=== PATIENT | female | born 1985 | race Caucasian/White ===

== ENCOUNTER 2023-03-31 13:34 | Day surgery (SDC) | payer OTHER ==
[2023-03-31] MEDS ORDERED: ACETAMINOPHEN 500 MG TABLET (FP) PO ONE (14:38)
[2023-03-31] MEDS ORDERED: ACETAMINOPHEN 500 MG TABLET (FP) ONE (14:55)
[2023-03-31 15:20] LABS: HCG,QUALITATIVE URINE Negative
[2023-03-31 15:21] LABS: BASO % 0.8 % (0-2.0); EOS % 0.4 % (0-4.5); HEMATOCRIT 42.2 % (32.4-45.2); HEMOGLOBIN 14.7 GM/dL (10.7-15.3); LYMPH % 22.5 % (8-40); MCH 28.9 pg (25.7-33.7); MCHC 34.7 g/dl (32.0-36.0); MEAN CELL VOLUME 83.2 fl (80-96); MEAN PLT VOLUME 8.2 fl (7.5-11.1); MONO % 4.3 % (3.8-10.2); PLATELET COUNT 273 10^3/uL (134-434); RBC 5.07 M/mm3 (3.60-5.2); RDW 13.2 % (11.6-15.6); WHITE BLOOD COUNT 11.6 K/mm3 (4.0-10.0)
[2023-03-31] MEDS ORDERED: KETOROLAC TROMETHAMINE 30 MG/1 ML VIAL IVPUSH ONE (15:44)
[2023-03-31 15:52] LABS: URINE APPEARANCE CLEAR; URINE BILIRUBIN NEGATIVE (NEGATIVE); URINE COLOR YELLOW; URINE GLUCOSE (UA) 3+ (NEGATIVE); URINE KETONE TRACE (NEGATIVE)
[2023-03-31 15:53] LABS: EPI CELLS 10 /uL (0-25.1); HYALINE CASTS 0 /uL (0-3.1); URINE BACTERIA 682 /uL (0-1359); URINE LEUK ESTERASE NEGATIVE (NEGATIVE); URINE NITRITE NEGATIVE (NEGATIVE); URINE PROTEIN NEGATIVE (NEGATIVE); URINE RBC 1757 /uL (0-23.9); URINE UROBILINOGEN 0.2 mg/dL (0.2-1.0); URINE WBC 30 /uL (0-25.8)
[2023-03-31 15:54] LABS: BLOOD UREA NITROGEN 11.6 mg/dL (7-18); CALCIUM 8.7 mg/dL (8.5-10.1)
[2023-03-31 15:55] LABS: ALBUMIN 3.8 g/dl (3.4-5.0)
[2023-03-31 15:57] LABS: CREATININE 0.6 mg/dL (0.55-1.3)
[2023-03-31 15:59] LABS: BILIRUBIN,TOTAL 0.9 mg/dL (0.2-1)
[2023-03-31] MEDS ORDERED: KETOROLAC TROMETHAMINE 30 MG/1 ML VIAL ONE (16:49)
[2023-03-31] MEDS: SODIUM CHLORIDE 0.9% 500 ML INFUS.BAG IV SCH ×2 (20:11→20:20)
[2023-03-31] MEDS ORDERED: morphine CARPU-JECT 2 MG/1 ML DISP.SYRIN IVPUSH ONE (23:55)
[2023-04-01] MEDS ORDERED: CEFTRIAXONE 2 GM-D5W BAG 2 GM/50 ML BAG IVPB ONE (00:09)
[2023-04-01] MEDS ORDERED: CEFTRIAXONE 2 GM/100 ML BAG IVPB ONE (00:35)
[2023-04-01] MEDS ORDERED: SODIUM CHLORIDE 1,000 ML IV SCH ×2 (02:45→16:21)
[2023-04-01] MEDS ORDERED: CEFTRIAXONE 1 GM in DEXTROSE 5%-WATER - 50 ML IVPB ONE (03:00)
[2023-04-01 06:41] LABS: BASO % 0.6 % (0-2.0); EOS % 0.2 % (0-4.5); HEMATOCRIT 39.3 % (32.4-45.2); HEMOGLOBIN 13.2 GM/dL (10.7-15.3); LYMPH % 15.7 % (8-40); MCH 28.5 pg (25.7-33.7); MCHC 33.5 g/dl (32.0-36.0); MEAN PLT VOLUME 8.1 fl (7.5-11.1); MONO % 4.3 % (3.8-10.2); NEUT % 79.2 % (42.8-82.8); PLATELET COUNT 256 10^3/uL (134-434); RBC 4.62 M/mm3 (3.60-5.2); RDW 13.1 % (11.6-15.6); WHITE BLOOD COUNT 10.3 K/mm3 (4.0-10.0)
[2023-04-01 07:01] LABS: ALBUMIN 3.1 g/dl (3.4-5.0); MAGNESIUM 1.9 mg/dL (1.8-2.4)
[2023-04-01 07:03] LABS: CALCIUM 7.7 mg/dL (8.5-10.1)
[2023-04-01 07:04] LABS: CREATININE 0.5 mg/dL (0.55-1.3); PHOSPHOROUS 2.4 mg/dL (2.5-4.9)
[2023-04-01 07:05] LABS: TOT PROT 6.1 g/dl (6.4-8.2)
[2023-04-01 07:06] LABS: BILIRUBIN,TOTAL 0.4 mg/dL (0.2-1)
[2023-04-01] MEDS ORDERED: oxyCODONE HCL 5 MG TABLET PO ONE (07:30)
[2023-04-01] MEDS ORDERED: oxyCODONE HCL 5 MG TABLET ONE (08:05)
[2023-04-01] MEDS ORDERED: INSULIN (LEVEMIR) 100 UNITS/ML UNITS SQ SCH (08:15)
[2023-04-01 08:26] LABS: INR 1.17 (0.83-1.09); PROTHROMBIN TIME (PATIENT) 13.5 SEC (9.7-13.0)
[2023-04-01 08:29] LABS: ACTIVATED PTT 27.6 SECONDS (25.2-36.5)
[2023-04-01] MEDS ORDERED: ENOXAPARIN NA (PORCINE) 40 MG/0.4 ML DISP.SYRIN SQ SCH (10:00)
[2023-04-01] MEDS ORDERED: BUPIVACAINE HCL/PF 0.25% (2.5MG/ML) 10 ML VIAL ONE ×2 (12:51→12:52)
[2023-04-01] MEDS ORDERED: HYDROmorphone HCl 2 MG/ML VIAL ONE (13:13)
[2023-04-01] MEDS ORDERED: LIDOCAINE HCL/PF 2% SDV 5ML VIAL ONE (13:13)
[2023-04-01] MEDS ORDERED: ROCURONIUM BROMIDE 50 MG/5 ML SYRINGE ONE (13:14)
[2023-04-01] MEDS ORDERED: MIDAZOLAM HCL 2 MG/2 ML SINGLE DOSE VIAL ONE (13:14)
[2023-04-01] MEDS ORDERED: CEFOXITIN SODIUM 2 GM IVPB ONE (13:41)
[2023-04-01] MEDS ORDERED: ceFAZolin SODIUM 1 GM VIAL IVPB ONE ×2 (13:46→13:53)
[2023-04-01] MEDS ORDERED: cefOXitin SODIUM 2 GM VIAL (RESTRICTED TO ID) IVPB ONE (13:46)
[2023-04-01] MEDS ORDERED: BUPIVACAINE HCL/PF 0.25% (2.5MG/ML) 10 ML VIAL IJ ONE (13:53)
[2023-04-01] MEDS ORDERED: GLYCOPYRROLATE 0.2 MG/1 ML VIAL ONE (13:54)
[2023-04-01] MEDS ORDERED: NEOSTIGMINE METHYLSULFATE 0.5 MG/1 ML - 10 ML MDV ONE (13:54)
[2023-04-01] MEDS ORDERED: ONDANSETRON 4 MG/2 ML VIAL IVPUSH PRN (18:19)
[2023-04-01] MEDS: ACETAMINOPHEN 500 MG TABLET (FP) PO SCH ×2 (18:50→23:54)
[2023-04-01 18:55] VITALS: BMI 37.6
[2023-04-01] MEDS: IBUPROFEN 600 MG TABLET (FP) PO PRN (21:29)
[2023-04-01] MEDS ORDERED: INSULIN (NOVOLOG) ASPART 100 UNITS/ML 10ML VIAL ONE (21:41)
[2023-04-01] MEDS: INSULIN (LEVEMIR) 100 UNITS/ML UNITS SQ SCH (22:29)
[2023-04-01] MEDS: INSULIN SLIDING SCALE (NOVOLOG) 1 VIAL SQ SCH (22:30)
[2023-04-01] MEDS ORDERED: CEFTRIAXONE 1 GM in DEXTROSE 5%-WATER - 50 ML IVPB SCH (23:00)
[2023-04-02] MEDS: ACETAMINOPHEN 500 MG TABLET (FP) PO SCH ×2 (06:30→12:14)
[2023-04-02] MEDS: INSULIN (LEVEMIR) 100 UNITS/ML UNITS SQ SCH (07:11)
[2023-04-02] MEDS: INSULIN SLIDING SCALE (NOVOLOG) 1 VIAL SQ SCH ×2 (07:11→12:20)
[2023-04-02] MEDS: IBUPROFEN 600 MG TABLET (FP) PO PRN (09:49)
[2023-04-02] MEDS ORDERED: ENOXAPARIN NA (PORCINE) 40 MG/0.4 ML DISP.SYRIN SQ SCH (10:00)
[2023-04-02] MEDS ORDERED: CEPHALEXIN MONOHYDRATE 500 MG CAPSULE (UD) PO SCH (12:00)
[2023-04-02 15:46] VITALS: BP 136/85; PULSE 80; RESP 20; TEMP 97.9
== END 2023-04-02 15:34 | disposition home or self-care (01) ==
LOC: JER 13:34 → JERBED 23:38 → UNDOADMIN 23:38 → JASUSAT 04-01 12:21 → SUATTDRO 04-01 12:21 → J2C 04-01 16:32 → J8W 04-01 17:39 → JASUSAT 04-02 15:34
PROVIDERS: ATTEND Nurse Practitioner Acute Care
PROC: 0DTJ4ZZ Resection of Appendix, Percutaneous Endoscopic Approach (ICD-10-PCS; principal; 2023-04-01 18:00)
DX: K35.80 Unspecified acute appendicitis (principal)
CPT/HCPCS: 36415; 74177-TC; 76830-TC; 80053; 81003; 82010; 82962; 83036; 83735; 84100; 84703; 85025; 85610; 85730; 86850; 86900; 86901; 87086; 87186; 88304-TC; 93005; 93010; 94760; 99285-25; Q9967